=== PATIENT | female | born 1975 | race Two or more races ===

== ENCOUNTER 2024-08-16 17:16 | Inpatient (IN) | payer OTHER ==
[~2024-08-16] VITALS: Ht 152.4 cm; Wt 59.0 kg
[2024-08-16] MEDS ORDERED: 0.9 % SODIUM CHLORIDE 1,000 ML IV STA (17:20)
--- NOTE | 2024-08-16 17:25 | NUR ---
SE RECIBE PTE ALERTA Y ORIENTADA X3 EN AMBULANCIA LA MISMA REFIERE QUE ES TRASNFERIDA POR EL CDT DR. KELVIN DE LA ROSA POR [facility] [facility]AGIN[facility] Y QUE ES PTE DE DRA. HOOPER. PTE CANALIZADA EN BRAZO IZUQIERDO CON ANGIO #[id number] Y .[id number]. SE MIDEN S/V Y SE UBICA.
[2024-08-16 18:15] LABS: HEMATOCRIT 32.8 % (36.0-45.00); HEMOGLOBIN 11.4 g/dL (12.0-15.00); MEAN CELL VOLUME 90.2 fL (80.00-100.00); MEAN CORPUSCULAR HEMOGLOBIN 31.3 pg (27.00-32.0); MEAN CORPUSCULAR HGB CONC 34.7 g/dl (32.0-36.0); PLATELET COUNT 357 K/uL (150-450); RED BLOOD COUNT 3.64 M/uL (4.00-6.00); RED CELL DISTRIBUTION WIDTH 13.4 % (11.5-14.5)
[2024-08-16 18:34] LABS: CALCIUM 8.2 mg/dL (8.5-10.1); CREATININE SERUM 0.67 mg/dL (0.55-1.02); GFR 93.94; INR < 0.93; PARTIAL THROMBOPLASTIN TIME 24.6 SECONDS (22.0-34.0); POTASSIUM 3.75 mEq/L (3.5-5.1)
--- NOTE | 2024-08-16 18:53 | NUR ---
PACIENTE ALERTA Y ORIENTADA X3, SE ORIENTA SOBRE TRATAMIENTO MEDICO INDICA ENTENDER Y ACEPTAR. SE REALIZA EXTRACCION DE MUESTRAS BJAO MEDIDAS ASEPTICAS. SE ORIENTA SOBRE ORDEN DE TRANSFUSION PARA DOS UNIDADES DE PRBC PEDIDAS POR . RUFUS PARA PORCEDIMIENTO OPERATORIO MANANA. PTE FIRMA CONSETIMIENTO DE TRANSFUSION, SE ANEJA EN RECORD. SE COLECTAN TUBOS PILOTOS Y SE COMPLETA REQUISION Y ES LLEVADA A LABAORATORIO. PERSONAL DE [place] NOTIFICA QUE PTE NO TIENE RECORD. SE COLECTA TECER TUBO LETHA Y ES LLEVADO AL LABORATORIO.
[2024-08-16 22:20] VITALS: BP 107/67
[2024-08-17 00:39] VITALS: BP 107/7
[2024-08-17 08:18] VITALS: BP 111/74
[2024-08-17] MEDS ORDERED: CEFAZOLIN SODIUM 2,000 MG in 0.9 % SODIUM CHLORIDE 100 ML IV SCH (09:30)
[2024-08-17] MEDS ORDERED: PROMETHAZINE HCL 25 MG/ML AMPUL IV PRN (16:30)
[2024-08-17] MEDS ORDERED: RINGERS SOLUTION,LACTATED 1,000 ML IV SCH (16:30)
[2024-08-17] MEDS ORDERED: MEPERIDINE HCL/PF 50 MG/ML VIAL IV PRN (16:30)
[2024-08-17] MEDS ORDERED: SURGIFLO APPLICATOR 1 EACH APPL TOP ONE (17:15)
[2024-08-17] MEDS ORDERED: MORPHINE SULFATE 4 MG/ML VIAL IV ONE ×2 (17:15→18:45)
[2024-08-17 20:44] LABS: HEMATOCRIT 26.5 % (36.0-45.00); MEAN CORPUSCULAR HEMOGLOBIN 30.6 pg (27.00-32.0); PLATELET COUNT 350 K/uL (150-450); RED BLOOD COUNT 2.94 M/uL (4.00-6.00); RED CELL DISTRIBUTION WIDTH 13.5 % (11.5-14.5)
[2024-08-17 20:57] LABS: ALBUMIN 2.9 gm/dL (3.4-5.0); BILIRUBIN TOTAL 0.43 mg/dL (0.3-1.2); CALCIUM 7.9 mg/dL (8.5-10.1); CREATININE SERUM 0.57 mg/dL (0.55-1.02); GFR 113.21; GLOBULINA 2.7 G/DL (2.4-3.5); POTASSIUM 4.15 mEq/L (3.5-5.1); TOTAL PROTEIN 5.6 gm/dL (6.4-8.2)
[2024-08-17 21:04] VITALS: BP 99/68
[2024-08-17 23:24] VITALS: O2SAT 100
[2024-08-18] VITALS: BP 90/56
[2024-08-18] MEDS ORDERED: IBUprofen 800 MG TABLET PO PRN (07:00)
[2024-08-18] MEDS ORDERED: DOCUSATE SODIUM 100MG CAP PO SCH (07:00)
[2024-08-18] MEDS ORDERED: OxyCODONE HCL/APAP UD (PERCOCET) PO PRN (07:00)
[2024-08-18 08:48] VITALS: BP 93/60
[2024-08-18] MEDS ORDERED: SIMETHICONE 125 MG CAPSULE PO SCH (09:00)
[2024-08-18 15:46] VITALS: BP 97/61
[2024-08-18] MEDS ORDERED: MORPHINE SULFATE 4 MG/ML CARTRIDGE IV PRN (16:30)
[2024-08-19] VITALS: BP 105/63
[2024-08-19] MEDS ORDERED: OxyCODONE HCL/APAP UD (PERCOCET) PO PRN (08:30)
[2024-08-19 08:58] VITALS: BP 100/65
[2024-08-19] MEDS ORDERED: IRON/V.C/V.B12/FOLIC A/VIT. E 1 CAPL CAPLET PO SCH (09:00)
[2024-08-19 15:57] VITALS: BP 101/66
[2024-08-20] VITALS: BP 91/55
[2024-08-20 07:47] VITALS: BP 110/71
[2024-08-20] MEDS ORDERED: MINERAL OIL 30 ML BLIST.PACK PO NR ×2 (12:30→17:45)
[2024-08-20] MEDS ORDERED: MAGNESIUM HYDROXIDE 30 ML BLIST.PACK PO NR ×2 (12:30→17:45)
[2024-08-20] MEDS ORDERED: IBUprofen 800 MG TABLET PO SCH (17:00)
[2024-08-20 17:12] VITALS: BP 121/71
[2024-08-20 23:54] VITALS: BP 115/75
[2024-08-21 08:00] VITALS: BP 119/78
[2024-08-21] MEDS ORDERED: BISACODYL 5 MG TABLET.EC PO STA (16:06)
[2024-08-21 17:36] VITALS: BP 100/67
[2024-08-21 18:03] LABS: MEAN CELL VOLUME 88.4 fL (80.00-100.00); MEAN CORPUSCULAR HGB CONC 34.6 g/dl (32.0-36.0); PLATELET COUNT 481 K/uL (150-450); RED BLOOD COUNT 2.65 M/uL (4.00-6.00); RED CELL DISTRIBUTION WIDTH 13.1 % (11.5-14.5)
[2024-08-21 18:05] LABS: HEMATOCRIT 23.4 % (36.0-45.00); MEAN CORPUSCULAR HEMOGLOBIN 30.5 pg (27.00-32.0)
[2024-08-21 18:06] LABS: HEMOGLOBIN 8.1 g/dL (12.0-15.00)
[2024-08-21 18:35] LABS: ALBUMIN 2.8 gm/dL (3.4-5.0); BILIRUBIN TOTAL 0.3 mg/dL (0.3-1.2); CALCIUM 8.5 mg/dL (8.5-10.1); CREATININE SERUM 0.62 mg/dL (0.55-1.02); GFR 102.74; GLOBULINA 3.4 G/DL (2.4-3.5); POTASSIUM 3.89 mEq/L (3.5-5.1); TOTAL PROTEIN 6.2 gm/dL (6.4-8.2)
[2024-08-21 23:41] VITALS: BP 107/73
[2024-08-22 08:00] VITALS: BP 106/63
[2024-08-22] MEDS ORDERED: BISACODYL 10 MG/SUPP.RECT SUPP.RECT RECTAL NR (12:00)
== END 2024-08-22 14:44 | disposition home or self-care (01) | DRG 741 ==
LOC: ER 17:16 → OB/GYN 20:38
PROVIDERS: Emergency Medicine; ADMIT Student in an Organized Health Care Education/Training Program; ATTEND Student in an Organized Health Care Education/Training Program
PROC: BU4CZZZ Ultrasonography of Uterus and Ovaries (ICD-10-PCS; 2024-08-16)
PROC: 0UT90ZZ Resection of Uterus, Open Approach (ICD-10-PCS; principal; 2024-08-17 12:00)
DX: C54.1 Malignant neoplasm of endometrium (principal); D25.9 Leiomyoma of uterus, unspecified